=== PATIENT | male | born 1945 | race Caucasian/White ===

== ENCOUNTER 2018-08-01 08:57 | Outpatient (CLI) | payer MEDICARE, OTHER ==
--- NOTE | 2018-08-02 14:28 | Ultrasound Report ---
Reason: L LEG CLAUDICATION Procedure Date: 08/01/2018 Accession Number: [id number] / [id number] Procedure: US - Duplex Lwr Ext Arterial Bilat CPT Code: FULL RESULT: EXAM: Bilateral Lower Extremity Arterial Doppler Ultrasound EXAM DATE: 08/01/2018 10:29 AM. CLINICAL HISTORY: Left leg claudication. COMPARISON: None. TECHNIQUE: Real-time sonographic vascular imaging was performed by the geophysical computer, utilizing color-flow, Doppler flow, and spectral analysis. Multiple client support representative static images were saved for review. FINDINGS: Right Lower Extremity: DISTRICT LEADER: PSV 141 cm/sec. Biphasic waveform. PSFA: PSV 56 cm/sec. Biphasic waveform. MSFA: PSV 93 cm/sec. Biphasic waveform. DSFA: PSV 135 cm/sec. Biphasic waveform. PFA: PSV 84 cm/sec. Biphasic waveform. POP: PSV 56 cm/sec. Biphasic waveform. ASHLEE: PSV 19 cm/sec. Biphasic waveform. [employer] COMM[employer]ITY C[facility]: PSV 11 cm/sec. Monophasic waveform. VIDA: PSV 15 cm/sec. Monophasic waveform. DPA: PSV 21 cm/sec. Monophasic waveform. Left Lower Extremity: DISTRICT LEADER: PSV 122 cm/sec. Biphasic waveform. PSFA: Occluded. MSFA: Occluded. DSFA: PSV 29 cm/sec. Trickle. Monophasic waveform. PFA: PSV 102 cm/sec. Biphasic waveform. POP: PSV 21 cm/sec. Monophasic waveform. ASHLEE: Occluded. DIRECT[employer] COMM[facility] C[facility]: Occluded. VIDA: Occluded. DPA: Occluded. IMPRESSION: 1. 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 There is minimal monophasic flow in the distal superficial femoral artery and popliteal artery. 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 2. Right lower extremity: The arteries of the right lower extremity are patent with no stenoses identified. [facility]
== END 2018-08-01 08:58 | disposition home or self-care (01) ==
LOC: DI 08:57
PROVIDERS: ATTEND Internal Medicine
DX: I77.1 Stricture of artery (principal)
CPT/HCPCS: 93925